=== PATIENT | male | born 1955 | race Caucasian/White ===

== ENCOUNTER → 2016-10-12 | Day surgery (SDC) | payer BC ==
[~2016-10-12] MED LIST: AMLODIPINE BESY10 MG PO; FENOFIBRATE160 MG PO; FLEXERIL10 MG PO; FLOMAX0.4 M1 PO; GLIPIZIDE10 MG PO; HYTRIN2 M1 PO; KCL PO; LIPITOR40 MG PO; MELOXICAM15 MG PO; METFORMIN PO; METOPROLOL SUC200 MG PO; MULTI-VITAMIN1 EAC1 PO; OMEPRAZOLE40 M1 PO; OXYCODONE-ACET1 EACH PO; VIAGRA PO; ZESTORETIC 20-1 EAC1 PO
--- NOTE | ~2016-10-12 | OR ---
Unit #: [id number] #: [id number] Patient: EMILY GASTELUM [id number] [address] [address] [id number] O MR#: [id number] NAME: EMILY GASTELUM ROOM: Date of Procedure: 10/12/2016 Admission Date: 10/12/2016 Surgeon: Jayme Gould M.D. : 1955 Attending Physician: Jayme Gould M.D. Referring Physician: Jayme Gould M.D. Primary Care Physician: Milena Tripathi M.D. OPERATIVE REPORT PREOPERATIVE DIAGNOSIS Right ureteral stone. POSTOPERATIVE DIAGNOSIS Right ureteral stone. PROCEDURES PERFORMED 1. Cystoscopy. 2. Right ureteroscopy. 3. Retrograde pyelogram. 4. Interpretation of right retrograde pyelogram. 5. Right stone basket extraction. 6. Right stent removal. ANESTHESIA General. INDICATIONS FOR PROCEDURE Mr. Gastelum is a pleasant 61-year-old male with a right distal ureteral stone. He is status post right ESWL with stent. He has some residual stone fragments. Risks, benefits, alternatives including bleeding, infection, damage to adjacent structures, need for further surgery, as well as risk of anesthesia were explained to the patient. Informed consent was obtained. He wished to proceed. DESCRIPTION OF PROCEDURE The patient was taken to the operative room, properly identified. After the application of satisfactory general anesthetic, the patient was placed in a dorsal lithotomy position. All pressure points were padded to satisfaction of surgical, anesthetic, and nursing teams. His genitalia were prepped and draped in the usual sterile fashion. I introduced the rigid 22-Setswana cystoscope. The urethra was normal. The prostate had mild bilobar hyperplasia with an elevated bladder neck. I removed the stent by the string. I passed a 0.035 Sensor wire, which coiled in the renal pelvis and a semi-rigid ureteroscope alongside the wire. There was a large calcification which was lateral to the wire within the ureter itself. There was a small stone, which I grasped with Nitinol basket and removed it atraumatically. I then passed a flexible ureteroscope over the wire and performed panendoscopy of the collecting system. He had a dilated collecting system throughout. I mapped it out completely. I shot a right retrograde pyelogram. The findings were as follows. Unit #: [id number] #: [id number] Patient: EMILY GASTELUM Interpretation of right retrograde pyelogram: He has hydroureteronephrosis down to the level of the distal ureter, but there was no obstructing stone. There was a single collecting system. There is a calcification, which is lateral to the ureter which is likely consistent with a phlebolith that it does not appear to be in the collecting system. I left him without a stent. The patient tolerated the procedure well without complications. He was transported stable and extubated to PACU. PLAN The plan will be for the patient to follow up in one month with a renal ultrasound. 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 Dictated by... Graeme Rice/becky TD: 10/13/2016 00:03 JOB #: [id number] OPERATIVE REPORT Page 1 of 1 X Jayme Gould MD X PROCEDURE OPERATIVE NOTE
--- NOTE | ~2016-10-12 | EKG ---
PATIENT: EMILY GASTELUM UNIT #: [id number] Ventricular Rate: 55 BPM Atrial Rate: 55 BPM P-R Interval: 194 ms QRS Duration: 88 ms Q-T Interval: 426 ms QTC Calculation(Bezet): 407 ms P [place]: 33 degrees Calculated R [place]: -2 degrees Calculated T [place]: -6 degrees Diagnosis Line: Sinus bradycardia Diagnosis Line: Moderate voltage criteria for LVH, may be normal Diagnosis Line: variant Diagnosis Line: Inferior infarct , age undetermined Diagnosis Line: Abnormal ECG Diagnosis Line: No previous ECGs available Diagnosis Line: Confirmed by DAIN HARDIN MD ([id number]), photography editor Diagnosis Line: ALFONSO BURNETT ([id number]) on 10/12/2016 4:08:46 PM Diagnosis Line: Also confirmed by DAIN HARDIN MD ([id number]), photography editor Diagnosis Line: KRYSTINA CHRISTENSEN ([id number]) on 10/14/2016 10:00:44 AM INTERPRETING MD: WILFRED TRENT
[2016-10-12 15:54] LABS: CALCIUM SERUM 9.1 mg/dL (8.4-10.2); GLOM FILT RATE Estimated 81.5 mL/min (>60)
== END | disposition home or self-care (01) ==
LOC: CSUR 14:40
PROVIDERS: Urology
DX: N20.1 Calculus of ureter (principal); I10 Essential (primary) hypertension; E78.5 Hyperlipidemia, unspecified; E11.9 Type 2 diabetes mellitus without complications; Z87.442 Personal history of urinary calculi; Z88.8 Allergy status to other drugs, medicaments and biological substances; Z79.1 Long term (current) use of non-steroidal anti-inflammatories (NSAID); Z79.84 Long term (current) use of oral hypoglycemic drugs; Z79.891 Long term (current) use of opiate analgesic; Z79.899 Other long term (current) drug therapy; Z90.49 Acquired absence of other specified parts of digestive tract; Z98.52 Vasectomy status; Z98.890 Other specified postprocedural states
CPT/HCPCS: 80048; 82365; 82947; 88300; 93005; C1758; J0690; J1885; J2405; J3010